=== PATIENT | male | born 1970 | race Hispanic/Latino ===

== ENCOUNTER 2018-02-24 09:12 | Emergency (ER) | payer SELFPAY ==
[2018-02-24] MEDS ORDERED: IBUPROFEN 800 MG TAB ONE (09:50)
== END 2018-02-24 12:09 | disposition home or self-care (01) ==
LOC: EDH 09:12
DX: M54.16 Radiculopathy, lumbar region (principal); E11.9 Type 2 diabetes mellitus without complications; F12.10 Cannabis abuse, uncomplicated
CPT/HCPCS: 73552; 82948; 93971

== ENCOUNTER 2022-12-25 12:12 | Emergency (ER) | payer OTHER ==
[~2022-12-25] VITALS: Ht 167.6 cm; Wt 96.2 kg
[~2022-12-25 12:12] MED LIST: NAPR500T6 PO; PRED20TA3 PO
[2022-12-25 13:41] LABS: APPEARANCE,URINE CLEAR (CLEAR); BILIRUBIN,URINE NEGATIVE (NEGATIVE); COLOR,URINE LIGHT-YELLOW (YELLOW); GLUCOSE, URINE (UA) >=1000 mg/dL (NEGATIVE); KETONES,URINE 5 mg/dL (NEGATIVE); LEUKOCYTE ESTERASE ,URINE NEGATIVE Leu/uL (NEGATIVE); NITRATE,URINE NEGATIVE (NEGATIVE); OCCULT BLOOD,URINE NEGATIVE (NEGATIVE); PH,URINE 5.5 (5.0-8.0); PROTEIN,URINE NEGATIVE (NEGATIVE); UROBILINOGEN,URINE 0.2 mg/dL (0.2-1.0)
[2022-12-25 13:43] LABS: MUCUS,URINE RARE LPF (None Seen); WBC,URINE 0-1 /HPF (0-1)
[2022-12-25 13:49] LABS: BASOPHILS % (AUTO) 0.4 % (0.0-5.0); EOSINOPHILS % (AUTO) 0.4 % (0.0-8.0); HEMATOCRIT 43.7 % (42-54); MEAN CORPUSCULAR HEMOGLOBIN 26.9 pg (27.0-33.0); MEAN CORPUSCULAR HGB CONC 32.5 g/dL (32.0-36.0); MEAN CORPUSCULAR VOLUME 82.8 fL (79-99); MONOCYTES % (AUTO) 6.7 % (3.0-13.0); NEUTROPHILS % (AUTO) 70.1 % (40.0-77.0); PLATELET COUNT (AUTO) 377 K/uL (130-400); RED BLOOD CELL COUNT(AUTO) 5.28 MIL/uL (4.50-6.20); RED CELL DISTRIBUTION WIDTH 13.2 % (11.0-15.5); WHITE BLOOD COUNT (AUTO) 13.4 K/uL (4.8-10.8)
[2022-12-25 14:02] LABS: ALBUMIN 3.8 g/dL (3.5-5.0); CREATININE 1.3 mg/dL (0.5-1.5); POTASSIUM 4.3 mmol/L (3.5-5.1); TOTAL PROTEIN, SERUM 7.7 g/dL (6.0-8.3)
[2022-12-25] MEDS ORDERED: 0.9%NACL 1000ML 1,000 ML IV ONE (15:00)
[2022-12-25] MEDS ORDERED: INSULIN HUMULIN R 100 UNIT/ML 3ML IV ONE (15:00)
[2022-12-25 15:09] LABS: ABG OXYGEN SATURATION 76.9 % (95.0-99.0); BASE EXCESS,VENOUS BLOOD GAS 0.4 (-2.0-3.0); HCO3,VENOUS BLOOD GAS 26.4 (21.0-28.0); PCO2,VENOUS BLOOD GAS 47 (35-48); PH,VENOUS BLOOD GAS 7.365 (7.350-7.450)
[2022-12-25 17:31] VITALS: BP 145/69
[2022-12-25] MEDS ORDERED: METF-444 PO (17:39)
[2022-12-25] MEDS ORDERED: CLOT15CR23 TP (17:39)
== END 2022-12-25 17:55 | disposition home or self-care (01) ==
LOC: EDH 12:12
DX: N43.3 Hydrocele, unspecified (principal); B37.42 Candidal balanitis; E11.9 Type 2 diabetes mellitus without complications; R03.0 Elevated blood-pressure reading, without diagnosis of hypertension; E66.01 Morbid (severe) obesity due to excess calories; Z68.34 Body mass index [BMI] 34.0-34.9, adult; Z79.899 Other long term (current) drug therapy
CPT/HCPCS: 99285; 96374; 96361; 80053; 82803; 83690; 85025; 82948; 81001; 36415; 76870; 36600; J1815 ×2; J7030